=== PATIENT | male | born 1990 | race Hispanic/Latino ===

== ENCOUNTER → 2018-07-29 | Outpatient (CLI) | payer OTHER | END | disposition home or self-care (01) | LOC: RAH 13:24 → EEVIPCON 13:24 | PROVIDERS: ATTEND Internal Medicine | DX: Z11.1 Encounter for screening for respiratory tuberculosis (principal); R91.1 Solitary pulmonary nodule; R91.8 Other nonspecific abnormal finding of lung field | CPT/HCPCS: 71250 ==